=== PATIENT | female | born 1990 | race Caucasian/White ===

== ENCOUNTER 2018-05-03 12:14 | Emergency (ER) | payer OTHER ==
[~2018-05-03] VITALS: Ht 160 cm; Wt 73.0 kg
[2018-05-03 12:22] VITALS: Ht 160 cm; Wt 73.0 kg
[2018-05-03 13:29] VITALS: BP 117/77
== END 2018-05-03 13:29 | disposition home or self-care (01) ==
LOC: ED 12:14
DX: R51 Headache (principal); Z90.49 Acquired absence of other specified parts of digestive tract